=== PATIENT | female | born 1985 ===

== ENCOUNTER 2024-02-21 10:01 | Outpatient (AMB) | payer OTHER, SELFPAY ==
--- NOTE | 2024-02-21 10:02 | AM.OFFWIN_ITS ---
Intake Vital Signs 3 02/21/24 10:03 Height 5 ft 1 in Weight 154 lb 6 oz BMI 29.2 BP 110/66 Blood Pressure Location Lt brachial Position Sitting Pulse 116 H Pulse Source Pulse Oximeter Temp 98.3 F Temp Source Oral Pulse Oximetry (%) 100 Oxygen Delivery Method Room Air Intake Visit Reasons: EP- bumps on neck, Rash on lower back Intake Note: Pt presents to the office today for c/o rash on neck,back, and her upper legs. Pt states she noticed this about 1 week ago. Pt states it is itchy. Allergies penicllins Allergy (Intermediate, Uncoded 02/21/24 10:06) Anaphylaxis HPI HPI Comments 2 History of Present Illness0 Details 38 y/o female patient who presents to [facility] walk in clinic with c/o rash on the abdomen, in between thighs and back of Neck. She noticed the rash ~ 2 weeks ago. Describes the rash very itchy and red. Denies any changes to cosmetic products, detergent, diet or medications. Denies fevers, chills, nausea or vomiting. She does recall that she wears a work shirt that has a strong dye and might be reacting from it. She does carry a small bag at her waist daily on top of her work shirt. Review of Systems Const All systems reviewed & are unremarkable except as noted in HPI and below Physical Exam Vital Signs: Last Vital Signs Temp 98.3 F 02/21/24 10:03 Pulse 116 H 02/21/24 10:03 BP 110/66 02/21/24 10:03 Pulse Ox 100 02/21/24 10:03 Oxygen Delivery Method Room Air 02/21/24 10:03 BMI result Body Mass Index 29.2 Const General: cooperative and no acute distress Nutritional Appearance: obese Orientation/consciousness: patient oriented x3 Skin Full body images: 2 1. Macular papular erythematous rash grouped together, and dry skin 2. Macular papular erythematous rash grouped together, and dry skin 3. Small patch of macular erythematous rash. Hyperpigmented lesion behind right ear, dry. Neuro General: patient oriented x3, gait normal and moves all extremities Assessment & Plan Assessment & Plan (1) Rash and nonspecific skin eruption: Code(s): R21 - Rash and other nonspecific skin eruption Plan: DDX's: Eczema, vs Dermatitis vs Psoriasis Ordered Steroid oral and topical Advised Pt to RTC Saturday if not better. Medications: New 2 prednisone 50 mg PO DAILY 5 days 5 tabs 0RF R21 - Rash and other nonspecific skin eruption triamcinolone acetonide 0.025% 1 appl topical BID 14 days 80 grams 0RF R21 - Rash and other nonspecific skin eruption Coding Level of Care Code Est Pt Level 3 (50118) Diagnoses Rash and nonspecific skin eruption R21 Time Spent (min) 15
[2024-02-21 10:03] VITALS: BP 110/66; PULSE 116; TEMP 36.8; O2SAT 100; BMI 29.2
== END 2024-02-21 10:52 | disposition home or self-care (01) ==
PROVIDERS: PCP Internal Medicine; Visit Provider Nurse Practitioner Family
DX: R21 Rash and other nonspecific skin eruption (principal)
CPT/HCPCS: 99213

== ENCOUNTER 2024-03-11 09:36 | Outpatient (AMB) | payer OTHER, SELFPAY ==
--- NOTE | 2024-03-11 09:36 | AM.OFFWIN_ITS ---
Intake Vital Signs 03/11/24 09:40 Height 5 ft 1 in Weight 155 lb BMI 29.3 BP 116/70 Blood Pressure Location Rt brachial Position Sitting Pulse 99 Pulse Source Pulse Oximeter Temp 98.6 F Temp Source Oral Pulse Oximetry (%) 99 Oxygen Delivery Method Room Air Intake Visit Reasons: EP-rt eye swollen Intake Note: pt c/o RT eye swelling. Started yesterday. Worsened overnight Patient Tobacco Use Status: Never used Tobacco Allergies penicllins Allergy (Intermediate, Uncoded 03/11/24 09:37) Anaphylaxis Do you need a note to return to daycare/school/sports/work: No HPI EP-rt eye swollen HPI Details This note is constructed using voice recognition software. While every effort has been made to ensure accuracy, power shovel mechanic errors may have been included. The patient is a 38 year old female who presents to the clinic today with right upper eyelid swelling. She notes that it started yesterday morning when she woke up, and when she woke up this morning it was slightly worse. She has no discharge, no pain with moving her eye, no difficulty with vision, no fever, no chills, or no other URI symptoms. She typically wears glasses. She has not tried anything to make it better. Nothing seems to make it worse. [facility] Social History Patient Tobacco Use Status: Never used Tobacco Review of Systems Const All systems reviewed & are unremarkable except as noted in HPI and below Physical Exam Vital Signs: Last Vital Signs Temp 98.6 F 03/11/24 09:40 Pulse 99 03/11/24 09:40 BP 116/70 03/11/24 09:40 Pulse Ox 99 03/11/24 09:40 Oxygen Delivery Method Room Air 03/11/24 09:40 BMI result Body Mass Index 29.3 Const General: cooperative, healthy appearing, comfortable, no acute distress and well developed Orientation/consciousness: patient oriented x3 Limitations: no limitations Eyes Eyelids: Yes eyelid abnormality (Right upper lid hordeolum present with surrounding swelling.) Conjunctivae: conjunctivae normal Sclerae: sclerae normal Corneas: corneas normal Pupils: Equal, round and reactive pupils present Resp Effort & Inspection: normal respiratory effort and able to speak in complete sentences Neuro General: patient oriented x3 Cranial nerves: Yes Equal, round and reactive pupils present Assessment & Plan Assessment & Plan (1) Hordeolum externum right upper eyelid: Code(s): H00.011 - Hordeolum externum right upper eyelid Plan: Reassuring physical examination today, patient advised and supportive measures including warm compresses minimally 4 times per day. Discussed use of erythromycin ointment for symptomatic management only as this is not an infection. Advised patient to follow up as needed with worsening or failure to resolve. Advised Ophthalmology should she have any visual changes. Plan See above for full details and plan. Medications: New erythromycin 0.5 inches ophthalmic (eye) TID 7 days 3.5 grams 0RF Coding Level of Care Code Est Pt Level 3 (45438) Diagnoses Hordeolum externum right upper eyelid H00.011
[2024-03-11 09:40] VITALS: BP 116/70; PULSE 99; TEMP 37; O2SAT 99; BMI 29.3
== END 2024-03-11 10:15 | disposition home or self-care (01) ==
PROVIDERS: PCP Internal Medicine; Visit Provider Registered Nurse
DX: H00.011 Hordeolum externum right upper eyelid (principal)

== ENCOUNTER → 2024-03-11 09:36 | Outpatient (BNVA) | payer OTHER, SELFPAY | PROVIDERS: PCP Internal Medicine | DX: H00.011 Hordeolum externum right upper eyelid (principal) | CPT/HCPCS: 99212 ==